=== PATIENT | male | born 1975 | race Caucasian/White ===

== ENCOUNTER → 2018-11-19 | Outpatient (CLI) | payer SELFPAY ==
--- NOTE | 2018-11-19 13:43 | DIREP ---
PROCEDURE:MRI SPINE LUMBAR W/O COMPARISON:None. INDICATIONS:M54.15 LUMBAR RADICULOPATHY TECHNIQUE:A comprehensive examination was performed utilizing a variety of imaging planes and imaging parameters to optimize visualization of suspected pathology. Images were performed without intravenous gadolinium contrast. FINDINGS: ALIGNMENT:Normal. VERTEBRA:Shortening of the lower lumbar pedicles, sagittal AP thecal sac dimension at the level of L2 is 11-12 mm. CORD/CAUDA EQUINA:Normal size, contour, and signal intensity. PARASPINAL AREA:Normal with no visible mass. OTHER:None. LUMBAR DISC LEVELS T12-L1:No significant disc/facet abnormality, spinal stenosis, or foraminal stenosis. L1-L2:No significant disc/facet abnormality, spinal stenosis, or foraminal stenosis. L2-L3:Mild annular bulge extending into the floor of the neural foramina producing mild bilateral neural foraminal narrowing. Borderline mild canal stenosis, sagittal AP thecal sac dimension 12 mm. L3-L4:Diffuse annular/foraminal bulge with superimposed broad-based left paracentral/foraminal disc protrusion. Dorsal annular fissure suggested within the disc on image 20 series 701. Mild bilateral ligamentum flavum/facet hypertrophy. Findings combine to produce severe left and moderate right neural foraminal narrowing. Mild central canal stenosis, sagittal AP thecal sac dimension 10-11 mm. L4-L5:Annular bulge extending into the floor of the neural foramina producing mild narrowing. Moderate bilateral facet arthropathy worse on the right. Findings produce moderate narrowing of the lateral recesses. Mild central canal stenosis, AP thecal sac dimension 10-11 mm. L5-S1:Broad-based left paracentral disc protrusion severely narrowing the left lateral recess with potential for impingement on the traversing left S1 nerve root. Underlying disc bulge extends into the floor of the neural foramina producing mild narrowing bilaterally, slightly worse on the left. CONCLUSION: 1. Lumbar spondylosis and shortened pedicles combine to produce multilevel mild spinal stenosis spanning L2-3 through L5-S1. 2. L5-S1 disc protrusion produces potential for impingement on the traversing left S1 nerve root. 3. Dorsal annular fissure, disc bulge and protrusion at L3-4 contribute to severe left and moderate right neural foraminal narrowing. 4. Neural foraminal narrowing and lateral recess narrowing additional levels above. Dictated by: Lane Etienne M.D. on 11/19/2018 at 01:32 PM
== END | disposition home or self-care (01) ==
LOC: RAD 09:51
PROVIDERS: ATTEND Family Medicine
DX: M47.26 Other spondylosis with radiculopathy, lumbar region (principal); M47.818 Spondylosis without myelopathy or radiculopathy, sacral and sacrococcygeal region; M48.07 Spinal stenosis, lumbosacral region; M51.16 Intervertebral disc disorders with radiculopathy, lumbar region; M53.3 Sacrococcygeal disorders, not elsewhere classified
CPT/HCPCS: 72148

== ENCOUNTER → 2024-08-28 | Outpatient (CLI) | payer OTHER | END | disposition home or self-care (01) | LOC: RAD 13:37 | PROVIDERS: ATTEND Nurse Practitioner | DX: M79.672 Pain in left foot (principal) | CPT/HCPCS: 73630-LT ==

== ENCOUNTER → 2025-09-09 | Outpatient (CLI) | payer OTHER | END | disposition home or self-care (01) | LOC: RAD 14:02 | PROVIDERS: ATTEND Physician Assistant | DX: I10 Essential (primary) hypertension (principal) | CPT/HCPCS: 93306 ==